=== PATIENT | female | born 1970 | race Caucasian/White ===

== ENCOUNTER 2016-12-06 10:53 | Emergency (ER) | payer OTHER ==
[2016-12-06 11:30] VITALS: BP 112/77; PULSE 76; RESP 18; TEMP 97.7; O2SAT 98
--- NOTE | 2016-12-06 11:53 | UCPHY ---
H & P Time Seen by Provider: 12/06/16 11:21 Patient Type: Established HPI/ROS: CHIEF COMPLAINT: Sore throat with mild postnasal drip HISTORY OF PRESENT ILLNESS: Healthy 46 year female began some 3 days ago with a mild stuffiness in her nose and scratchy throat mostly of sore throat. She notes some anterior adenopathy. There has been no associated laryngitis. She has had minimal cough. She does have 2 teenage children who are both healthy without any current symptoms Remote history of mono REVIEW OF SYSTEMS: Constitutional - no fevers or chills. Eyes - no discharge, or injection ENT - no earache, change in hearing, difficulty swallowing. Respiratory - No Shortness of breath, phlegm, wheezing or pleuritic chest pain. The cough is dry Musculoskeletal - no joint or muscle pain. Integument - no rashes. Neurological - no headache, numbness, tingling, or paresthesias. No focal motor weakness. Immunological - no swelling or lymphadenopathy. Physical Exam: Gen: Well developed, well nourished. Nontoxic. HEENT: Normocephalic. Ears: TMs are clear. Hearing normal. Eyes: PERRL. No conjunctival injection or pallor. no jaundice. Nose: No nasal discharge. Sinuses are nontender. Throat: Membranes are moist. Oropharynx is shows [id number] erythema of the pillars and tonsils but no anmol exudate or petechiae mild anterior adenopathy no posterior adenopathy. Normal phonation. Lungs: Good air entry into both lungs. No rales rhonchi or wheezes. No air hunger. No respiratory distress. Skin: Good color, without pallor. There is no diaphoresis. Skin is warm and dry , without diaphoresis. Intact without rashes Constitutional: Initial Vital Signs Temperature (C) 36.5 C 12/06/16 11:27 Heart Rate 76 12/06/16 11:27 Respiratory Rate 18 12/06/16 11:27 Blood Pressure 112/77 12/06/16 11:27 O2 Sat (%) 98 12/06/16 11:27 O2 Delivery Mode Room Air Allergies/Adverse Reactions: No Known Allergies Allergy (Unverified 12/06/16 11:27) Home Medications: Medication Instructions Recorded NK [No Known Home Meds] 12/06/16 Medical Decision Making ED Course/Re-evaluation: Rapid strep negative Differential Diagnosis: Diagnostic considerations include, but are not limited to, the following: URI, sinusitis, pharyngitis, otitis media, pneumonia, allergy. - Data Points Laboratory Results: 12/06/16 12/06/16 Unknown 11:20 Group A Strep Screen NEGATIVE (NEGATIVE) Group A Strep DNA Pending Departure - Departure Disposition: Home, Routine, Self-Care Clinical Impression: Pharyngitis Qualifiers: Pharyngitis/tonsillitis etiology: unspecified etiology Qualified Code(s): J02.9 - Acute pharyngitis, unspecified Condition: Good Instructions: Pharyngitis (ED) Additional Instructions: Tylenol or ibuprofen for the discomfort Recheck with PCP in 1 week if not all better your contagious until the duration of her symptoms. Referrals: NONE *PRIMARY CARE P,. [Primary Care Provider] - As per Instructions - PQRS PQRS Measurement: Not applicable
== END 2016-12-06 12:15 | disposition home or self-care (01) ==
LOC: CED 10:53
DX: J02.9 Acute pharyngitis, unspecified (principal)
CPT/HCPCS: 87880-PO; 99214-PO; G0463-PO

== ENCOUNTER 2017-03-19 06:25 | Observation (INO) | payer OTHER ==
[~2017-03-19 06:25] MED LIST: HYDROCODONE/APAP 5/325 TAB PO SCH
[2017-03-19] MEDS ORDERED: HYOSCYAMINE SULFATE 0.125 MG TAB PO ONE (06:33)
[2017-03-19] MEDS ORDERED: NS 1,000 ML IV ONE (06:33)
[2017-03-19] MEDS ORDERED: ONDANSETRON 4 MG/2 ML VIAL ONE ×2 (06:42→14:30)
--- NOTE | 2017-03-19 06:46 | EDPHY ---
H & P Stated Complaint: abdominal pain Source: Patient Exam Limitations: No limitations - Personal History LMP (Females 10-55): 15-21 Days Ago Current Tetanus Diphtheria and Acellular Pertussis (TDAP): Unsure - Medical/Surgical History Hx Asthma: No Hx Chronic Respiratory Disease: No Hx Diabetes: No Hx Cardiac Disease: No Hx Renal Disease: No Hx Cirrhosis: No Hx Alcoholism: No Hx HIV/AIDS: No Hx Splenectomy or Spleen Trauma: No Other PMH: THYROID CYST REMOVAL - Family History Significant Family History: No pertinent family hx - Social History Smoking Status: Never smoked Alcohol Use: Occasionally (The patient reports having a glass wine every other day average with 3 drinks over the weekend typically. She did have 3 beers last night and ate pizza.) Drug Use: None Time Seen by Provider: 03/19/17 06:31 HPI/ROS: This 46 yo patient reports feeling well when she went to bed but awakening at 1:00 a.m., 5 1/2 hours prior to arrival with upper belly discomfort described as crampy. By 3:00 a.m. the pain has become severe and intense to come in waves. She reports that it radiates to her back. She has not had this pain before. It does not seem to change with movement. She does have a bit of burning that radiates into her chest. She feels more comfortable sitting upright than lying supine. She has not tried any medications. No other exacerbating or alleviating factors are noted. She called a friend who drove her in for evaluation. ROS: No fevers chills or other constitutional symptoms HEENT: No URI symptoms recently. No other complaints. Pulmonary: She reports mild dyspnea but she attributes this to pain and apprehension about her pain. No cough. No pleuritic pain. Cardiovascular: No chest pain. No heart palpitations or lightheadedness. No lower extremity swelling GI: Mild nausea but no vomiting. Normal bowel movements. : No urinary symptoms. Last menstrual timing was normal-3 weeks ago Integumentary: No rash or other complaints Endocrine: No polyuria or polydipsia Neuro: No headache. No leg numbness, tingling or other complaints 10 point ROS is otherwise negative (Aba De Jesus) - Medical/Surgical History PMH: Reducible umbilical hernia after . No abdominal surgeries. (Aba De Jesus) - Physical Exam Exam: General Appearance: Alert, mild distress due to pain Eyes: Pupils equal and round no pallor or injection. ENT, Mouth: Mucous membranes moist. Respiratory: There are no retractions, lungs are clear to auscultation. Cardiovascular: Regular rate and rhythm. Gastrointestinal: Hyperactive bowel sounds, soft, moderate epigastric tenderness with no guarding or rebound. No organomegaly. Mild distension. Small umbilical hernia is reducible and not particularly tender. No significant lower belly tenderness. No organomegaly. Rectal exam: No external hernias. Small amount of stool in the vault, nontender, stool is dark brown. Hemoccult pending Neurological: Alert with no focal deficits. Skin: Warm and dry, no rashes. Musculoskeletal: Neck is supple nontender. Extremities are symmetrical, full range of motion. Psychiatric: Mood and affect normal DIFFERENTIAL DIAGNOSIS: After history and physical exam differential diagnosis was considered for bowel obstruction, GERD, gastritis, ulcer, cholecystitis, pancreatitis, biliary colic, coronary syndrome, dissecting aortic aneurysm, ( Aba De Jesus) Constitutional: Initial Vital Signs Temperature (C) 36.4 C 03/19/17 06:27 Heart Rate 67 03/19/17 06:27 Respiratory Rate 18 03/19/17 06:27 Blood Pressure 107/53 L 03/19/17 06:27 O2 Sat (%) 99 03/19/17 06:27 O2 Delivery Mode Room Air Allergies/Adverse Reactions: No Known Allergies Allergy (Verified 03/19/17 06:26) Home Medications: Medication Instructions Recorded NK [No Known Home Meds] 12/06/16 Medical Decision Making - Diagnostics EKG Interpretation: EKG time is 7:08 a.m.; EKG shows a narrow complex normal sinus rhythm with a ventricular rate of 60. The [place], QRS, QT intervals are within normal limits. There are no ST-T wave changes indicative of ischemic or injury pattern. No evidence of right heart strain. Interpreted by me. (Sima Sheppard) ED Course/Re-evaluation: IV is established. Patient is treated with Levsin sublingual, Zofran IV and Dilaudid IV with partial relief At 7:00 a.m. I discussed this case with Dr. Sima Sheppard who takes over the case at this time with EKG pending and labs pending. (Aba De Jesus) I took over care of this patient at 7:00 a.m.. I have reviewed her vital signs. Her vital signs are normal. I have reviewed her EKG. Right upper quadrant ultrasound has been ordered to evaluate her gallbladder in ductal system as well as pancreas. After racing care she was given 20 mg of IV Pepcid and 4 mg of IV Zofran. (Sima Sheppard) - Data Points Laboratory Results: Laboratory Results 03/19/17 06:40 03/19/17 06:40 03/19/17 03/19/17 03/19/17 07:05 06:40 06:40 WBC RBC Hgb Hct MCV MCH MCHC RDW Plt Count MPV Neut % (Auto) Lymph % (Auto) [place] % (Auto) Eos % (Auto) Baso % (Auto) Nucleat RBC Rel Count Absolute Neuts (auto) Absolute Lymphs (auto) Absolute Monos (auto) Absolute Eos (auto) Absolute Basos (auto) Absolute Nucleated RBC Immature Gran % Immature Gran # Sodium 141 mEq/L mEq/L (134-144) Potassium 3.7 mEq/L mEq/L (3.5-5.2) Chloride 104 mEq/L mEq/L (97-110) Carbon Dioxide 21 mEq/l L mEq/l (22-31) Anion Gap 16 mEq/L mEq/L (8-16) BUN 14 mg/dL mg/dL (7-23) Creatinine 0.7 mg/dL mg/dL (0.6-1.0) Estimated GFR > 60 Glucose 103 mg/dL H mg/dL (70-100) Calcium 10.2 mg/dL mg/dL (8.5-10.4) Total Bilirubin 0.8 mg/dL mg/dL (0.1-1.4) AST 17 IU/L IU/L (14-46) ALT 20 IU/L IU/L (9-52) Alkaline Phosphatase 77 IU/L IU/L (38-126) Total Protein 7.0 g/dL g/dL (6.3-8.2) Albumin 4.0 g/dL g/dL (3.5-5.0) Lipase 144.0 IU/L IU/L (23-300) Beta HCG, Qual NEGATIVE Stool Occult Bld Scrn Pending 03/19/17 06:40 WBC 10.38 10^3/uL H 10^3/uL (3.80-9.50) RBC 4.95 10^6/uL 10^6/uL (4.18-5.33) Hgb 15.0 g/dL g/dL (12.6-16.3) Hct 44.0 % % (38.0-47.0) MCV 88.9 fL fL (81.5-99.8) MCH 30.3 pg pg (27.9-34.1) MCHC 34.1 g/dL g/dL (32.4-36.7) RDW 12.8 % % (11.5-15.2) Plt Count 286 10^3/uL 10^3/uL (150-400) MPV 9.7 fL fL (8.7-11.7) Neut % (Auto) 65.6 % % (39.3-74.2) Lymph % (Auto) 24.6 % % (15.0-45.0) [place] % (Auto) 8.1 % % (4.5-13.0) Eos % (Auto) 1.0 % % (0.6-7.6) Baso % (Auto) 0.4 % % (0.3-1.7) Nucleat RBC Rel Count 0.0 % % (0.0-0.2) Absolute Neuts (auto) 6.82 10^3/uL H 10^3/uL (1.70-6.50) Absolute Lymphs (auto) 2.55 10^3/uL 10^3/uL (1.00-3.00) Absolute Monos (auto) 0.84 10^3/uL H 10^3/uL (0.30-0.80) Absolute Eos (auto) 0.10 10^3/uL 10^3/uL (0.03-0.40) Absolute Basos (auto) 0.04 10^3/uL 10^3/uL (0.02-0.10) Absolute Nucleated RBC 0.00 10^3/uL 10^3/uL (0-0.01) Immature Gran % 0.3 % % (0.0-1.1) Immature Gran # 0.03 10^3/uL 10^3/uL (0.00-0.10) Sodium Potassium Chloride Carbon Dioxide Anion Gap BUN Creatinine Estimated GFR Glucose Calcium Total Bilirubin AST ALT Alkaline Phosphatase Total Protein Albumin Lipase Beta HCG, Qual Stool Occult Bld Scrn Medications Given: Discontinued Medications Hydromorphone HCl (Dilaudid) 0.4 mg IVP EDNOW ONE Stop: 03/19/17 06:50 Last Admin: 03/19/17 06:45 Dose: 0.4 mg Hyoscyamine Sulfate (Levsin, Hyomax-Sl) 0.25 mg PO ONCE ONE Stop: 03/19/17 06:34 Last Admin: 03/19/17 06:37 Dose: 0.25 mg Sodium Chloride (Ns) 1,000 mls @ 0 mls/hr IV ONCE ONE; Wide Open PRN Reason: Protocol Stop: 03/19/17 06:34 Last Admin: 03/19/17 06:37 Dose: 1,000 mls
[2017-03-19 06:48] LABS: % IMMATURE GRANULYOCYTES 0.3 % (0.0-1.1); ABSOLUTE IMMATURE GRANULOCYTES 0.03 10^3/uL (0.00-0.10); ADD DIFF? NO; ADD MORPH? NO; ADD SCAN? NO; ATYPICAL LYMPHOCYTE FLAG 10 (0-99); FRAGMENT RBC FLAG 0 (0-99); LEFT SHIFT FLG 0 (0-99); LIPEMIA HEMOLYSIS FLAG 90 (0-99); MEAN CELL HEMOGLOBIN 30.3 pg (27.9-34.1); MEAN CELL HEMOGLOBIN CONCENTR. 34.1 g/dL (32.4-36.7); MEAN CELL VOLUME 88.9 fL (81.5-99.8); MEAN PLATELET VOLUME 9.7 fL (8.7-11.7); PLATELET CLUMPS FLAG 10 (0-99); PLATELET COUNT 286 10^3/uL (150-400); RED BLOOD CELL COUNT 4.95 10^6/uL (4.18-5.33); RED CELL DISTRIBUTION WIDTH 12.8 % (11.5-15.2)
[2017-03-19] MEDS ORDERED: HYDROmorphONE/DILAUDID 1 MG/ML SYR IVP ONE ×3 (06:49→09:19)
[2017-03-19 07:00] LABS: ALANINE AMINOTRANSFERASE 20 IU/L (9-52); ALKALINE PHOSPHATASE 77 IU/L (38-126); ANION GAP 16 mEq/L (8-16); ASPARTATE AMINOTRANSFERASE 17 IU/L (14-46); BILIRUBIN,TOTAL 0.8 mg/dL (0.1-1.4); CALCIUM 10.2 mg/dL (8.5-10.4); CARBON DIOXIDE 21 mEq/l (22-31); CHLORIDE 104 mEq/L (97-110); CREATININE 0.7 mg/dL (0.6-1.0); GLOMERULAR FILTRATION RATE > 60; GLUCOSE 103 mg/dL (70-100); POTASSIUM 3.7 mEq/L (3.5-5.2); SODIUM 141 mEq/L (134-144)
--- NOTE | 2017-03-19 07:12 | CPEKG ---
Heart Rate: 60 RR Interval: 1000 P-R Interval: 160 QRSD Interval: 100 QT Interval: 448 QTC Interval: 448 P Perry: 62 QRS Perry: 84 T Wave Perry: 61 EKG Severity - BORDERLINE ECG - EKG Impression: SINUS RHYTHM EKG Impression: BORDERLINE T ABNORMALITIES, ANT-LAT LEADS Electronically Signed By: Sima Sheppard 19-Mar-2017 07:19:07
[2017-03-19] MEDS ORDERED: ONDANSETRON 4 MG/2 ML VIAL IVP ONE ×2 (07:14→10:23)
[2017-03-19] MEDS ORDERED: FAMOTIDINE 20 MG in NS 100 ML IV ONE (07:14)
[2017-03-19] MEDS ORDERED: NS 500 ML IV ONE (07:34)
[2017-03-19] MEDS ORDERED: IOPAMIDOL (ISOVUE-300) 100 ML BTL ONE (07:53)
[2017-03-19 09:54] LABS: COLOR YELLOW; LEUKOCYTE ESTERASE,URINE NEGATIVE (NEGATIVE); NITRITE,URINE NEGATIVE (NEGATIVE); PH,URINE 6.5 (5.0-7.5)
[2017-03-19] MEDS ORDERED: KETOROLAC 30 MG/1 ML SDV IVP ONE (10:04)
[2017-03-19] MEDS ORDERED: PROMETHAZINE HCL 25 MG/ML INJ IVP ONE (10:23)
[2017-03-19] MEDS ORDERED: D5W 1/2 NS W/ 20 KCl/L 1,000 ML IV SCH (11:15)
[2017-03-19] MEDS ORDERED: ONDANSETRON 4 MG/2 ML VIAL IVP PRN (11:16)
[2017-03-19] MEDS ORDERED: BUPIVACAINE 0.5% 30 ML SDV ONE (11:40)
--- NOTE | 2017-03-19 13:59 | GHP ---
[f rep st] HISTORY AND PHYSICAL DATE OF ADMISSION: 03/19/2017 CHIEF COMPLAINT: Cholelithiasis. HISTORY OF PRESENT ILLNESS: The patient is a 46-year-old woman who presented to urgent care with ep igastric pain. She had a CT scan and an ultrasound obtained that did not show acute cholecystitis, but did show gallstones impacted in the gallbladder neck. Her LFTs are within normal limits. Her p ain continued to be a problem and so I had her transferred to [facility]. Since arrival, her pain is better. She still has some pain in her right upper quadrant. It does not radiate. The pa in medications have made it better. Not having pain medications makes it worse. She has mild nause a and had beer and pizza last evening. PAST MEDICAL HISTORY: None. PAST SURGICAL HISTORY: Thyroid cyst removal and right forearm surgery. ALLERGIES: No known drug allergies. MEDICATIONS: No home medications. SOCIAL HISTORY: She denies tobacco use. She is a realtor. FAMILY HISTORY: No pertinent family medical history. REVIEW OF SYSTEMS: A 10-point review of systems was negative, except for HPI. PHYSICAL EXAMINATION: VITAL SIGNS: 36.8, 16, 60, 92/62, 95% on room air. GENERAL: A pleasant, we ll-nourished, well-groomed woman, lying on the bed. Appears comfortable, in no acute distress. PARISH NT: Normocephalic. No gross hearing deficits. Mucous membranes moist. Pupils equal and round. N o scleral icterus. LUNGS: Clear to auscultation bilaterally. No increased work of breathing. CAR DIAC: Regular rate. ABDOMEN: Bowel sounds present. Soft, nontender. She does have an umbilical hernia. No surgical incisions. MUSCULOSKELETAL: Normal nails. NEURO: Cranial nerves II through XII grossly intact. SKIN: Warm and dry. PSYCH: Mood and affect normal. LABORATORY DATA: Results reviewed per HPI. IMPRESSION AND PLAN: The patient is a 46-year-old woman with impacted stones in her gallbladder, as well as an umbilical hernia. I will take her to the operating room for a laparoscopic cholecystect destinee with umbilical hernia repair. The risks and benefits, including, but not limited to, stroke, he art attack, , blood clots, infection, bleeding, damage to surrounding structures, such as the c ommon bile duct and intestines, were discussed. She had her questions answered to her satisfaction and signed the informed consent. /[id number]/MODL
[2017-03-19] MEDS ORDERED: MIDAZOLAM 2 MG/2 ML VIAL IVP ONE (14:25)
--- NOTE | 2017-03-19 14:26 | PDANEPAE ---
ANE History of Present Illness sammy cano PAULA Past Medical History - Cardiovascular History Hx Hypertension: No Hx Arrhythmias: No Hx Chest Pain: No Hx Coronary Artery / Peripheral Vascular Disease: No Hx CHF / Valvular Disease: No Hx Palpitations: No - Pulmonary History Hx COPD: No Hx Asthma/Reactive Airway Disease: No Hx Recent Upper Respiratory Infection: No Hx Oxygen in Use at Home: No - Neurologic History Hx Cerebrovascular Accident: No - Endocrine History Hx Diabetes: No - Renal History Hx Renal Disorders: No - Liver History Hx Hepatic Disorders: No ANE Review of Systems Review of systems is: negative - Exercise capacity Exercise capacity: >=4 METS ANE Patient History - Allergies Allergies/Adverse Reactions: No Known Allergies Allergy (Verified 03/19/17 06:26) - Home Medications Home Medications: NK [No Known Home Meds] 12/06/16 [Last Taken Unknown] - NPO status NPO Since - Liquids (Date): 03/19/17 NPO Since - Liquids (Time): 01:00 NPO Since - Solids (Date): 03/18/17 NPO Since - Solids (Time): 20:00 - Anes Hx Anes Hx: no prior problems - Smoking Hx Smoking Status: Never smoked - Alcohol Use Alcohol Use: Occasionally (The patient reports having a glass wine every other day average with 3 drinks over the weekend typically. She did have 3 beers last night and ate pizza.) ANE Labs/Vital Signs - Labs Result Diagrams: 03/19/17 06:40 03/19/17 06:40 - Vital Signs Blood Pressure: 99/62 Heart Rate: 60 Respiratory Rate: 16 O2 Sat (%): 95 Height: 170.18 cm Weight: 74.843 kg ANE Physical Exam - Airway Mallampati Score: Class 2 Mouth exam: normal dental/mouth exam - Pulmonary Pulmonary: no respiratory distress - Cardiovascular Cardiovascular: regular rate and rhythym - ASA Status ASA Status: I ANE Anesthesia Plan Anesthesia Plan: GA w LMA
[2017-03-19] MEDS ORDERED: KETOROLAC 30 MG/1 ML SDV ONE (14:30)
[2017-03-19] MEDS ORDERED: LIDOCAINE 2% 5 ML SDV ONE (14:30)
[2017-03-19] MEDS ORDERED: MIDAZOLAM 2 MG/2 ML VIAL ONE (14:30)
[2017-03-19] MEDS ORDERED: ROCURONIUM 50 MG/5 ML VIAL ONE (14:30)
[2017-03-19] MEDS ORDERED: DEXAMETHASONE 4 MG/ML VIAL ONE (14:30)
[2017-03-19] MEDS ORDERED: fentaNYL 100 MCG/2 ML INJ ONE ×2 (14:31→16:46)
[2017-03-19] MEDS ORDERED: PROPOFOL 200 MG/20 ML VIAL ONE (14:31)
[2017-03-19] MEDS ORDERED: CEFAZOLIN 2 GM/DEXTROSE/100 ML BAG IV ONE (14:34)
[2017-03-19] MEDS ORDERED: ceFAZolin 2 GM in D5W 100 ML IV ONE (15:00)
[2017-03-19] MEDS ORDERED: ALBUTEROL 3 ML DEYVIAL IH PRN (15:06)
[2017-03-19] MEDS ORDERED: NALOXONE HCL 0.4 MG/ML INJ IVP PRN (15:06)
[2017-03-19] MEDS ORDERED: SUGAMMADEX SODIUM 200 MG/2 ML VIAL IVP ONE (15:39)
[2017-03-19] MEDS ORDERED: MEPERIDINE 25 MG/ML SYR ONE (16:02)
[2017-03-19] MEDS ORDERED: HYDROCODONE/APAP 5/325 TAB PO PRN (16:03)
--- NOTE | 2017-03-19 16:04 | POSTOPPROG ---
Post Op Note Date of Operation: 03/19/17 Surgeon: Teresa Garcia Anesthesiologist: peyman Anesthesia: GET(General Endotracheal) Pre-op Diagnosis: cholelithiasis and umbilical hernia Post-op Diagnosis: same Indication: 46 yo with stone impacted in gb Procedure: lap rachael and umbilical hernia repair Findings: distended gb Inf/Abcess present in the surg proc area at time of surgery?: No EBL: Minimal Specimen(s): gbgb
[2017-03-19] MEDS ORDERED: MEPERIDINE 25 MG/ML SYR IVP PRN (16:05)
--- NOTE | 2017-03-19 16:05 | POSTANESTH ---
Post Anesthetic Evaluation Cardiovascular Status: Normal, Stable Respiratory Status: Normal, Stable Level of Consciousness/Mental Status: Can Participate in Eval Pain Control: Adequate, Prn Tx Ordered Nausea/Vomiting Control: Adequate, Prn Tx Ordered Complications Possibly Related to Anesthesia: None Noted
[2017-03-19] MEDS: fentaNYL 100 MCG/2 ML INJ IVP PRN ×2 (16:51→17:00)
[2017-03-19 17:11] VITALS: RESP 16
--- NOTE | 2017-03-19 17:38 | GOP ---
[f rep st] OPERATIVE REPORT DATE OF OPERATION: 03/19/2017 SURGEON: Teresa Garcia MD ANESTHESIA: General. ANESTHESIOLOGIST: Marco Fields MD PREOPERATIVE DIAGNOSIS: Cholelithiasis and umbilical hernia. POSTOPERATIVE DIAGNOSIS: Cholelithiasis and umbilical hernia. PROCEDURE PERFORMED: Laparoscopic cholecystectomy and umbilical hernia repair. FINDINGS: Enlarged gallbladder and fat-containing umbilical hernia. SPECIMENS: Gallbladder. ESTIMATED BLOOD LOSS: 20 cc. INDICATIONS: Afsaneh Palacios is a 46-year-old woman who presented to the urgent care with epigastric pain, nausea. Her gallbladder was found to be distended with a stone impacted at the neck. On physical exam, she also had an umbilical hernia. DESCRIPTION OF PROCEDURE: The patient was brought into the operating room, placed supine on the table, and general anesthesia was administered. Her abdomen was prepped and draped in the usual sterile fashion. I infiltrated all sites with 0.5% Marcaine prior to making incisions. I made an incision at her umbilicus. I dissected down through the subcutaneous tissues and immediately encountered fat. I came around the base of the umbilicus with a hemostat. I detached the umbilical stalk from the hernia. I then had to detach to ligate some omentum in order to get the omentum to reduce back into the abdominal cavity. Once this was reduced, I placed a 10 mm trocar at this site. I explored her abdomen and under direct vision I placed a 5 mm subxiphoid trocar and two 5 mm trocars along the right costal margin. I elevated her gallbladder cephalad. It was extremely tense. I inserted a Veress needle and aspirated 60 cc of bile. I retracted the gallbladder laterally to expose the triangle of Calot. I perform some adhesiolysis, including pushing her duodenal away from the triangle of Calot. After I had adequate exposure, I isolated the cystic artery and cystic duct. These were the only 2 structures directly entering the gallbladder. They were each singly clipped toward the gallbladder, doubly clipped distally, and transected with scissors. The common bile duct was visualized and protected. I removed the gallbladder from the gallbladder fossa with electrocautery. I placed it in an EndoCatch bag and retrieved it via the 10 mm trocar. Hemostasis was achieved on the liver bed with electrocautery. I performed suction irrigation. I then also placed River on the liver bed. The abdomen was inspected for injuries and none noted. Clips were in satisfactory position. The ports were removed under direct vision. The abdomen allowed to desufflate. I closed the fascia at the 10 mm trocar site with 4 interrupted sutures of 0 Surgilon. I reapproximated the umbilicus with Vicryl. I closed skin with 4-0 Monocryl. Dermabond applied. She was awakened in the operating room, extubated, transferred to PACU in stable condition. /[id number]/MODL MTDD
--- NOTE | 2017-03-19 19:31 | SOAPPROG ---
SUSY Progress Note Assessment/Plan: Assessment: s/p lap rachael and umbilical hernia repair. feeling well would like to dc home Plan: 03/19/17 19:30 Objective: Vital Signs Temp Pulse Resp BP Pulse Ox 36.5 C 56 L 16 117/71 91 L 03/19/17 18:00 03/19/17 19:00 03/19/17 19:00 03/19/17 19:00 03/19/17 19:00 03/18/17 03/19/17 03/20/17 05:59 05:59 05:59 Intake Total 2500 Output Total 21 Balance 2479 ICD10 Worksheet Patient Problems: Problems Problem Status Onset Cholelithiasis Acute - ICD10 Problem Qualifiers (1) Cholelithiasis Qualifiers: Cholelithiasis location: gallbladder Cholecystitis presence: without cholecystitis Cholangitis presence: C Cholecystitis acuity: C Cholangitis acuity: C Biliary obstruction: without biliary obstruction Qualified Code(s) : K80.20 - Calculus of gallbladder without cholecystitis without obstruction
[2017-03-19 20:19] VITALS: BP 110/64; PULSE 72; TEMP 98.2; O2SAT 98
== END 2017-03-19 21:06 | disposition home or self-care (01) ==
LOC: CED 06:25 → CEDHOLD 11:15 → F1N 12:31
PROVIDERS: ADMIT Surgery; ATTEND Surgery
PROC: 0FT44ZZ Resection of Gallbladder, Percutaneous Endoscopic Approach (ICD-10-PCS; principal; 2017-03-19 15:00)
PROC: 0WQF0ZZ Repair Abdominal Wall, Open Approach (ICD-10-PCS; principal; 2017-03-19 15:00)
DX: K80.12 Calculus of gallbladder with acute and chronic cholecystitis without obstruction (principal); K42.9 Umbilical hernia without obstruction or gangrene
CPT/HCPCS: 74177-PO; 76705-PO; 80053-PO; 81003-PO; 82270-PO; 83690-PO; 84703-PO; 85025-PO; 96374; G0378; J0690; J1100; J1170; J1885; J2250; J2405; J2550; J2704; J3010; Q9967